=== PATIENT | female | born 1985 | race Caucasian/White ===

== ENCOUNTER → 2020-10-01 | Outpatient (CLI) | payer BC ==
[2020-10-01 15:05] LABS: Basophils # (A) 0.04 X 10*3/uL (0.00-0.10); Basophils % (A) 0.6 %; Eosinophils # (A) 0.24 X 10*3/uL (0.04-0.35); Eosinophils % (A) 3.8 %; HCT 40.3 % (37.2-46.3); HGB 12.8 g/dL (12.0-15.0); Lymphocytes # (A) 0.74 X 10*3/uL (0.90-5.00); Lymphocytes % (A) 11.6 %; MCH 28.9 pg (27.0-32.0); MCHC 31.8 g/dL (32.0-37.0); Mean Platelet Volume 10.7 fL (9.5-12.2); Monocytes # (A) 0.49 X 10*3/uL (0.20-1.00); Monocytes % (A) 7.7 %; Neutrophils # (A) 4.86 X 10*3/uL (1.80-7.70); Platelet Count 256 X 10*3/uL (140-440); RBC 4.43 X 10*6/uL (4.10-5.20); RDW 13.1 % (11.5-14.5); WBC 6.39 X 10*3/uL (4.50-10.00)
[2020-10-01 16:29] LABS: African American GFR (CKD) 110.7 (60.0-200.0); Albumin 4.3 g/dL (3.80-4.90); Albumin/Globulin Ratio 1.79 (1.60-3.17); Anion Gap 5.7 mmol/L (4.00-12.00); Carbon Dioxide 24.3 mmol/L (21.6-31.8); Chol/HDL Ratio 3.57; Globulin 2.4 g/dL (1.6-3.3); LDL Cholesterol,Calculated 110.8 mg/dL (0.0-131.0); Non-African American GFR(CKD) 95.5 (60.0-200.0); Potassium 4.4 mmol/L (3.5-5.5); Total Bilirubin 0.3 mg/dL (0.3-1.2); Total Protein 6.7 g/dL (6.2-8.2); VLDL Calculation 20.2 mg/dL (5.00-40.00)
== END | disposition home or self-care (01) ==
LOC: LABWHC1 07:52
PROVIDERS: ATTEND Family Medicine
DX: Z00.00 Encounter for general adult medical examination without abnormal findings (principal); E03.9 Hypothyroidism, unspecified
CPT/HCPCS: 36415; 80053; 80061; 84443; 85025

== ENCOUNTER → 2021-11-15 | Outpatient (CLI) | payer BC ==
[2021-11-15 14:54] LABS: HCT 40.2 % (37.2-46.3); HGB 13.3 g/dL (12.0-15.0); MCH 29.6 pg (27.0-32.0); MCHC 33.1 g/dL (32.0-37.0); MCV 89.5 fL (80.0-97.0); Mean Platelet Volume 10.2 fL (9.5-12.2); NRBC Per 100 WBC 0 /100 WBCS (0.0-0.0); Platelet Count 248 X 10*3/uL (140-440); RBC 4.49 X 10*6/uL (4.10-5.20); RDW 12.8 % (11.5-14.5); WBC 3.96 X 10*3/uL (4.50-10.00)
[2021-11-15 15:30] LABS: ALT 34 U/L (8-44); AST 25 U/L (13-35); African American GFR (CKD) 116.8 (60.0-200.0); Albumin 4.5 g/dL (3.8-4.9); Albumin/Globulin Ratio 1.76 (1.60-3.17); Alkaline Phosphatase 50 U/L (41-126); BUN/Creat Ratio 8.23 Ratio (12.00-20.00); Blood Urea Nitrogen 6.3 mg/dL (9.0-27.0); Calcium 9.8 mg/dL (8.7-10.3); Carbon Dioxide 26.6 mmol/L (20.0-27.5); Chloride 104 mmol/L (96-109); Chol/HDL Ratio 3.86 Ratio; Globulin 2.6 g/dL (1.6-3.3); Glucose 85 mg/dL (70-110); LDL Cholesterol,Calculated 152.9 mg/dL (0.0-131.0); Non-African American GFR(CKD) 100.8 (60.0-200.0); Potassium 4.4 mmol/L (3.5-5.5); Sodium 139 mmol/L (135-145); VLDL Calculation 10.82 mg/dL (5.00-40.00)
== END | disposition home or self-care (01) ==
LOC: LABWHC1 08:28
PROVIDERS: ATTEND Family Medicine
DX: Z00.00 Encounter for general adult medical examination without abnormal findings (principal); E03.9 Hypothyroidism, unspecified; I10 Essential (primary) hypertension
CPT/HCPCS: 36415; 80053; 80061; 84439; 84443; 85027

== ENCOUNTER → 2023-01-09 | Outpatient (CLI) | payer BC ==
[2023-01-09 11:13] LABS: Basophils # (A) 0.03 X 10*3/uL (0.00-0.10); Basophils % (A) 0.6 %; Eosinophils # (A) 0.11 X 10*3/uL (0.04-0.35); HCT 43.9 % (37.2-46.3); HGB 14.4 d/dL (12.0-15.0); Lymphocytes # (A) 1.08 X 10*3/uL (0.90-5.00); Lymphocytes % (A) 19.9 %; MCH 28.9 pg (27.0-32.0); MCHC 32.8 d/dL (32.0-37.0); MCV 88.2 FL (80.0-97.0); Mean Platelet Volume 10.3 FL (9.5-12.2); Monocytes # (A) 0.51 X 10*3/uL (0.20-1.00); Monocytes % (A) 9.4 %; NRBC Per 100 WBC 0 X 10*3/uL (0.00-0.01); Neutrophils # (A) 3.69 X 10*3/uL (1.80-7.70); Neutrophils % (A) 67.9 %; Platelet Count 236 X 10*3/uL (140-440); RBC 4.98 X 10*6/uL (4.10-5.20); RDW 13.2 % (11.5-14.5); WBC 5.43 X 10*3/uL (4.50-10.00)
[2023-01-09 11:54] LABS: ALT 14 U/L (8-44); AST 12 U/L (13-35); Albumin 4.7 d/dL (3.8-4.9); Albumin/Globulin Ratio 1.62 Ratio (1.60-3.17); Alkaline Phosphatase 52 U/L (41-126); BUN/Creat Ratio 20.88 Ratio (12.00-20.00); Blood Urea Nitrogen 16.7 mg/dL (9.0-27.0); Calcium 9.5 mg/dL (8.7-10.3); Carbon Dioxide 22.4 mmol/L (21.6-31.8); Chloride 101 mmol/L (96-109); Chol/HDL Ratio 3.16 Ratio; Globulin 2.9 d/dL (1.6-3.3); Glucose 82 mg/dL (70-110); Potassium 4.4 mmol/L (3.5-5.5); Sodium 137 mmol/L (135-145); T4, Free (Free Thyroxine) 1.34 ng/dL (0.80-1.80); Total Bilirubin 0.3 mg/dL (0.3-1.2); Total Protein 7.6 d/dL (6.2-8.2); VLDL Calculation 12.54 mg/dL (5.00-40.00)
== END | disposition home or self-care (01) ==
LOC: LABWHC1 07:30
PROVIDERS: ATTEND Family Medicine
DX: Z00.00 Encounter for general adult medical examination without abnormal findings (principal); I10 Essential (primary) hypertension; E03.9 Hypothyroidism, unspecified; D50.9 Iron deficiency anemia, unspecified
CPT/HCPCS: 36415; 80053; 80061; 82306; 84439; 84443; 84480; 85025

== ENCOUNTER → 2024-04-16 | Outpatient (CLI) | payer BC ==
[2024-04-16 13:46] LABS: ALT 12 U/L (8-44); AST 15 U/L (13-35); Albumin 4.5 g/dL (3.8-4.9); Albumin/Globulin Ratio 1.67 Ratio (1.60-3.17); Alkaline Phosphatase 45 U/L (41-126); BUN/Creat Ratio 14.38 Ratio (12.00-20.00); Blood Urea Nitrogen 11.5 mg/dL (9.0-27.0); Calcium 9.5 mg/dL (8.7-10.3); Carbon Dioxide 22.6 mmol/L (21.6-31.8); Chloride 103 mmol/L (96-109); Chol/HDL Ratio 3.07 Ratio; Globulin 2.7 g/dL (1.6-3.3); Glucose 86 mg/dL (70-110); LDL Cholesterol,Calculated 124.2 mg/dL (0.0-131.0); Potassium 4.3 mmol/L (3.5-5.5); Sodium 137 mmol/L (135-145); T4, Free (Free Thyroxine) 1.32 ng/dL (0.80-1.80); Total Bilirubin 0.5 mg/dL (0.3-1.2); Total Protein 7.2 g/dL (6.2-8.2)
== END | disposition home or self-care (01) ==
LOC: LABWHC1 07:46
PROVIDERS: ATTEND Family Medicine
CPT/HCPCS: 36415; 80053; 80061; 84439; 84443